=== PATIENT | male | born 1995 | race Caucasian/White ===

== ENCOUNTER 2021-06-22 12:19 | Emergency (ER) | payer MEDICAID ==
[~2021-06-22] VITALS: Ht 188 cm; Wt 100.0 kg
[2021-06-22 12:51] VITALS: BP 155/115
[2021-06-22 13:16] LABS: CLARITY,URINE CLEAR (Clear); COLOR,URINE YELLOW (Yellow); GLUCOSE, URINE NEGATIVE (Neg); KETONES,URINE NEGATIVE (Neg); LEUKOCYTE ESTERASE ,URINE NEGATIVE (Neg); NITRITES, URINE NEGATIVE (Neg); OCCULT BLOOD,URINE NEGATIVE (Neg); PROTEIN,URINE NEGATIVE (Neg); UROBILINOGEN,URINE 0.2 E.U/dL (0.2-1.0)
[2021-06-22 13:22] LABS: UA COLLECTION TYPE CLN CATCH MIDSTREAM
[2021-06-22] MEDS ORDERED: ACYC-1 PO (15:29)
[2021-06-22] MEDS ORDERED: ACYC5CRE2 TP (15:29)
== END 2021-06-22 15:36 | disposition home or self-care (01) ==
LOC: ER 12:20
DX: R21 Rash and other nonspecific skin eruption (principal); R30.9 Painful micturition, unspecified
CPT/HCPCS: 36415; 81003; 87491; 99283